=== PATIENT | male | born 1955 | race African-American/Black ===

== ENCOUNTER 2021-08-03 10:30 | Inpatient (IN) | payer MEDICARE, MEDICAID ==
[~2021-08-03] VITALS: Ht 180.3 cm; Wt 93.0 kg
[2021-08-03 11:09] LABS: Eosinophils # (auto) 0 10 ^3/uL (0-0.8); Lymphocytes # (auto) 2.6 10 ^3/uL (0.4-5.4); Neutrophils # (auto) 1.8 10 ^3/uL (1.6-8.6); White Blood Cell 4.9 10^3/uL (4.4-10.8)
[2021-08-03 11:12] LABS: Basophils # (auto) 0.1 10 ^3/uL (0-0.2); Eosinophils % (auto) 0.7 % (0.0-7.0); Hematocrit 45.3 % (41.0-53.0); Hemoglobin 14.4 g/dL (13.5-17.5); Lymphocytes % (auto) 52.4 % (10.0-50.0); Mean Corpuscular Hemoglobin 23.9 pg (28.0-32.0); Mean Corpuscular Hgb Conc. 31.8 g/dL (32.0-36.0); Mean Corpuscular Volume 75.1 fL (80.0-100.0); Monocytes # (auto) 0.5 10 ^3/uL (0-1.3); Monocytes % (auto) 9.3 % (0.0-12.0); Neutrophils % (auto) 36.6 % (37.0-80.0); Red Blood Cells 6.03 10^6/uL (4.5-5.90); Red Cell Distribution Width 18.8 % (11.8-14.3)
[2021-08-03 11:16] LABS: Urine WBC None Seen /hpf (0 - 3)
[2021-08-03 11:23] LABS: Albumin 3.7 g/dL (3.4-5.0); Calcium 9.6 mg/dL (8.5-10.1); Potassium 4.4 mmol/L (3.5-5.1)
[2021-08-03 11:25] LABS: Bilirubin, Total 0.8 mg/dL (0.2-1.0); Magnesium 2.5 mg/dL (1.6-2.6)
[2021-08-03 11:40] LABS: Urine Bacteria FEW /hpf (None Seen); Urine Blood Negative /uL (Negative); Urine Mucus FEW (None Seen); Urine Specific Gravity 1.028 (1.001-1.035)
[2021-08-03] MEDS ORDERED: ASPirin 81 mg TAB PO ONE (16:15)
[2021-08-03] MEDS ORDERED: ENOXAPARIN SOD 100 MG/1 ML SYRINGE SC ONE (16:15)
[2021-08-03] MEDS ORDERED: ACETAMINOPHEN 500 MG TAB PO PRN (19:15)
[2021-08-03] MEDS ORDERED: MORPHINE SULFATE INJECTION 2 MG/ML SYRG IV PRN (19:15)
[2021-08-03] MEDS ORDERED: NITROGLYCERIN 0.4 MG SL TAB SL PRN (19:15)
[2021-08-03] MEDS ORDERED: hydrALAZINE HCL 20 MG/ML VL IV PRN (19:15)
[2021-08-03] MEDS ORDERED: DOCUSATE CALCIUM 240 MG CAP PO PRN (19:15)
[2021-08-03] MEDS: ONDANSETRON HCL 4 MG/2 ML VIAL IV PRN (21:27)
[2021-08-03] MEDS ORDERED: LORazepam 0.5 MG TAB PO PRN (22:00)
[2021-08-03 23:48] VITALS: BP 132/72
[2021-08-04] MEDS: ONDANSETRON HCL 4 MG/2 ML VIAL IV PRN (00:31)
[2021-08-04 05:00] VITALS: BP 114/72
[2021-08-04 05:36] LABS: Eosinophils # (auto) 0 10 ^3/uL (0-0.8); Hemoglobin 14.2 g/dL (13.5-17.5); Lymphocytes # (auto) 2.5 10 ^3/uL (0.4-5.4); Monocytes # (auto) 0.4 10 ^3/uL (0-1.3); Nucleated Red Blood Cells % 0.1 %
[2021-08-04 05:38] LABS: Basophils # (auto) 0.1 10 ^3/uL (0-0.2); Basophils % (auto) 1.2 % (0.0-2.0); Eosinophils % (auto) 0.2 % (0.0-7.0); Hematocrit 43.8 % (41.0-53.0); Lymphocytes % (auto) 52.1 % (10.0-50.0); Mean Corpuscular Hemoglobin 24.3 pg (28.0-32.0); Mean Corpuscular Hgb Conc. 32.4 g/dL (32.0-36.0); Monocytes % (auto) 8.9 % (0.0-12.0); Neutrophils # (auto) 1.8 10 ^3/uL (1.6-8.6); Neutrophils % (auto) 37.6 % (37.0-80.0); Red Blood Cells 5.83 10^6/uL (4.5-5.90); Red Cell Distribution Width 18.7 % (11.8-14.3); White Blood Cell 4.8 10^3/uL (4.4-10.8)
[2021-08-04 05:59] LABS: Potassium 4.1 mmol/L (3.5-5.1)
[2021-08-04 06:11] LABS: Albumin 3.6 g/dL (3.4-5.0); BUN/Creatinine Ratio 14.3; Bilirubin, Total 0.8 mg/dL (0.2-1.0); Total Protein 7.4 g/dL (6.4-8.2)
[2021-08-04 06:14] LABS: INR 1.09 (0.9-1.15)
[2021-08-04] MEDS ORDERED: AMLO-412 PO (08:06)
[2021-08-04 08:15] VITALS: BP 110/69
[2021-08-04 09:00] VITALS: BP 110/69
[2021-08-04] MEDS: PANTOPRAZOLE 40 MG TAB PO SCH (10:01)
[2021-08-04] MEDS: ENOXAPARIN SOD 40 MG/0.4 ML SYRINGE SC SCH (10:04)
[2021-08-04 13:00] VITALS: BP 115/80
[2021-08-04 17:00] VITALS: BP 128/79
[2021-08-04] MEDS: MORPHINE SULFATE 4 MG/ML SYR/VIAL IV PRN ×2 (17:31→23:30)
[2021-08-04 22:00] VITALS: BP 127/86
[2021-08-05 05:30] VITALS: BP 122/76
[2021-08-05 09:20] VITALS: BP 120/75
[2021-08-05] MEDS: PANTOPRAZOLE 40 MG TAB PO SCH (09:46)
[2021-08-05] MEDS: ENOXAPARIN SOD 40 MG/0.4 ML SYRINGE SC SCH (09:46)
[2021-08-05 13:00] VITALS: BP 131/91
[2021-08-05 17:00] VITALS: BP 135/95
[2021-08-05 22:00] VITALS: BP 124/75
[2021-08-06 05:00] VITALS: BP 126/70
[2021-08-06 08:00] VITALS: BP 116/73
[2021-08-06] MEDS: ENOXAPARIN SOD 40 MG/0.4 ML SYRINGE SC SCH (10:00)
[2021-08-06] MEDS: PANTOPRAZOLE 40 MG TAB PO SCH (10:00)
[2021-08-06] MEDS ORDERED: ADENOSINE 78 MG in GIVE UN-DILUTED 0 ML IV STA (10:02)
[2021-08-06 10:17] VITALS: BP 120/75
[2021-08-06 12:00] VITALS: BP 128/88
[2021-08-06 16:00] VITALS: BP 131/91
[2021-08-06 22:00] VITALS: BP 122/79
[2021-08-06] MEDS: ONDANSETRON HCL 4 MG/2 ML VIAL IV PRN (23:18)
[2021-08-07 05:00] VITALS: BP 111/68
[2021-08-07 09:00] VITALS: BP 120/75
[2021-08-07] MEDS: ENOXAPARIN SOD 40 MG/0.4 ML SYRINGE SC SCH (10:28)
[2021-08-07 13:00] VITALS: BP 132/87
[2021-08-07 13:38] VITALS: BP 120/75
[2021-08-07 13:52] VITALS: BP 120/75
== END 2021-08-07 15:50 | disposition home or self-care (01) | DRG 190 ==
LOC: ER 10:30 → TELE 19:13 → TELE-WESTW 22:45
PROVIDERS: ADMIT Family Medicine; ATTEND Family Medicine
DX: I21.4 Non-ST elevation (NSTEMI) myocardial infarction (principal); I12.9 Hypertensive chronic kidney disease with stage 1 through stage 4 chronic kidney disease, or unspecified chronic kidney disease; N40.0 Benign prostatic hyperplasia without lower urinary tract symptoms; N18.9 Chronic kidney disease, unspecified; R73.9 Hyperglycemia, unspecified; I70.90 Unspecified atherosclerosis; Z87.442 Personal history of urinary calculi; Z20.822 Contact with and (suspected) exposure to COVID-19
CPT/HCPCS: 36415; 71046; 74176; 78452; 80053; 81001; 83036; 83690; 83735; 84443; 84484; 85025; 85610; 87426; 93005; 93017; 93306; 96372; G0378; J0153; J2405